=== PATIENT | female | born 1975 | race American Indian/Alaskan Native ===

== ENCOUNTER 2017-06-05 01:33 | Emergency (ER) | payer OTHER ==
[2017-06-05 04:04] LABS: Basophils # (Auto) 0.1 K/mm3 (0.0-0.1); Basophils % (Auto) 0.6 % (0.0-1.8); Hemoglobin 12.8 gm/dl (10.1-14.3); Lymphocytes # (Auto) 1.1 K/mm3 (1.2-5.4); Lymphocytes % (Auto) 11.4 % (13.4-35.0); Mean Corpuscular HGB Conc 32 % (30-34); Mean Corpuscular Hemoglobin 23 pg (28-32); Mean Corpuscular Volume 73 fl (79-97); Monocytes # (Auto) 0.4 K/mm3 (0.0-0.8); Monocytes % (Auto) 4.6 % (0.0-7.3); Platelet Count 343 K/mm3 (140-440); Red Blood Count 5.51 M/mm3 (3.65-5.03); Red Cell Distribution Width 16.8 % (13.2-15.2)
[2017-06-05 04:22] LABS: BUN/Creatinine Ratio 25; Blood Urea Nitrogen 20 mg/dL (7-17); Calcium 9.6 mg/dL (8.4-10.2); Hemolysis Index 0
[2017-06-05] MEDS ORDERED: ZOFRAN ODT ONE (05:34)
[2017-06-05] MEDS ORDERED: ZOFRAN ODT PO ONE (05:37)
[2017-06-05 07:32] VITALS: BP 101/51
[2017-06-05] MEDS ORDERED: NACL 0.9% 1000 ML 1,000 ML IV ONE (07:33)
[2017-06-05] MEDS ORDERED: PHENERGAN PO ONE (07:33)
[2017-06-05] MEDS ORDERED: MOTRIN PO ONE (07:34)
[2017-06-05] MEDS ORDERED: K-DUR PO NR (07:40)
--- NOTE | 2017-06-05 07:40 | Emergency Department Report ---
HPI - General Chief Complaint: Pain General Time Seen by Provider: 06/05/17 07:22 - HPI HPI: 41-year-old -[place] female comes in for body aches chills fever with nausea and vomiting since Monday. Patient reports that she's been having nausea since Monday vomiting she's been able to have ice chips last vomited 1 hour prior to coming to fast track. Patient reports she's had symptoms like this one year ago. She has no past medical history currently takes no medications has no known drug allergies. ED Past Medical Hx - Past Medical History Previous Medical History?: Yes - Surgical History Past Surgical History?: No - Social History Smoking Status: Current Every Day Smoker Substance Use Type: Alcohol - Medications Home Medications: Home Medications Medication Instructions Recorded Confirmed Last Taken Type Omeprazole 40 mg PO QDAY #30 capsule. 06/05/17 Unknown Rx ED Review of Systems ROS: Stated complaint: FLU LIKE SX Other details as noted in HPI Constitutional: chills, fever, malaise Eyes: denies: eye pain, eye discharge, vision change ENT: denies: ear pain, throat pain Respiratory: denies: cough, shortness of breath, wheezing Cardiovascular: denies: chest pain, palpitations Endocrine: no symptoms reported Gastrointestinal: nausea, vomiting Genitourinary: denies: urgency, dysuria, discharge Musculoskeletal: myalgia Skin: denies: rash, lesions Neurological: denies: headache, weakness, paresthesias Psychiatric: denies: anxiety, depression Hematological/Lymphatic: denies: easy bleeding, easy bruising Physical Exam - Physical Exam Vital Signs: Vital Signs 06/05/17 06/05/17 01:41 07:25 Temperature 98 F Pulse Rate 60 72 Respiratory 20 Rate Blood Pressure 101/51 Blood Pressure 151/88 [Left] O2 Sat by Pulse 97 98 Oximetry Physical Exam: GENERAL: Alert and oriented x3, no apparent distress, Normal Gait, atraumatic. HEAD: Head is normocephalic and a-traumatic. EYES: Extra ocular muscles are intact. Pupils are equal, round, and reactive to light and accommodation. EARS: symetrical, atraumatic, non tender, ear canal clear and moderate cerumen, tympanic membrance non inflamed. gross auditory nml bilaterally. NOSE: Nose symetrical, Nontender,Nares appeared normal. Mucoid discharge MOUTH: Oral mucosa dry. Tonsils nonerythematous or swollen, Uvula midline, Tongue not elevated. Posterior pharynx clear, no exudate or lesions. Patent airways. NECK: Supple. Non edematous, No carotid bruits. No lymphadenopathy or thyromegaly. LUNGS: Symetrical with respiration, No wheezing, no rales or crackles, CTAB. HEART: S1, S2 present, regular rate and rhythm without murmur, no rubs, no gallops. ABDOMEN: No organomegaly was noted,Positive bowel sounds, soft, and non- distended. . EXTREMITIES/MUSCULOSKELETAL: No cyanosis, clubbing, rash, lesions or edema. Full ROM bilaterally. UE/LE Pulses 2+ bilaterally. LE and UE 5+ strength bilaterally NEUROLOGIC: No focal Deficit, Cranial nerves II through XII are grossly intact. No loss of sensation, No facial droop, PSYCHIATRIC: Mood is congruent with affect, denies suicidal or homicidal ideations. SKIN: Warm and dry, No lesions, No ulceration or induration present ED Course Vital Signs 06/05/17 06/05/17 01:41 07:25 Temperature 98 F Pulse Rate 60 72 Respiratory 20 Rate Blood Pressure 101/51 Blood Pressure 151/88 [Left] O2 Sat by Pulse 97 98 Oximetry - Reevaluation(s) Reevaluation #1: 06/05/17 11:50 ASIS. Reevaluated by this provider fast track. Patient discussed that she feels somewhat better. She says that she still has a little bit of reflux which is chronic for her. Discussed with patient not give her prescription for omeprazole and a referral to [facility] patient verbalized understanding ED Medical Decision Making - Lab Data Result diagrams: 06/05/17 03:13 06/05/17 03:13 - Medical Decision Making Patient's been evaluated by this provider fast track. Waiting for urine analysis in urine hCG. Also ordered a 1 L normal saline bolus. Once we have hCG back we'll give her ibuprofen for body aches and Phenergan for the nausea and vomiting. Labs back elevated glucose of 151. Stable WBC BUN is a little elevated at 20 creatinine is normal potassium slightly low at 3.1, give her some potassium as well. Pepcid 20 mg given IV for epigastric in reflux complaint. Critical care attestation.: If time is entered above; I have spent that time in minutes in the direct care of this critically ill patient, excluding procedure time. ED Disposition Clinical Impression: Viral syndrome Disposition: DC-01 TO HOME OR SELFCARE Is pt being admited?: No Does the pt Need Aspirin: No Condition: Stable Additional Instructions: Drink plenty of fluids. Advance diet as tolerated. Take omeprazole prior to eating foods. Follow-up with a primary care provider I have listed one below. Prescriptions: Omeprazole 40 mg PO QDAY #30 capsule. Referrals: PRIMARY CARE [Primary Care Provider] - 3-5 Days [facility] [Provider Group] - 3-5 Days Forms: Work/School Release Form(ED), Accompanied Note
[2017-06-05] MEDS ORDERED: K-DUR PO ONE (08:18)
[2017-06-05 09:21] LABS: Bilirubin,Urine NEG (Negative); Blood,Urine LG (Negative); Color,Urine Yellow (Yellow); Mucus,Urine FEW /HPF; Nitrite,Urine NEG (Negative)
[2017-06-05 09:26] LABS: HCG Qualitative,Urine Negative (Negative)
[2017-06-05] MEDS ORDERED: MOTRIN ONE (09:39)
[2017-06-05] MEDS ORDERED: PHENERGAN ONE (09:39)
[2017-06-05] MEDS ORDERED: PEPCID IV ONE (10:18)
== END 2017-06-05 11:59 | disposition home or self-care (01) ==
LOC: ED 01:33
DX: B34.9 Viral infection, unspecified (principal); F17.200 Nicotine dependence, unspecified, uncomplicated
CPT/HCPCS: 36415; 80048; 81001; 81025; 85025; 96361; 96374; 99284; J7030; Q0162; Q0169